=== PATIENT | female | born 1955 | race Caucasian/White ===

== ENCOUNTER 2023-03-29 09:33 | Outpatient (RCR) | payer MEDICARE, BC, SELFPAY ==
--- NOTE | 2023-03-29 09:30 | HOLTER_ITS ---
APPROVED REPORT Conclusion This is a 24-hour Holter monitor ordered for PVCs Rhythm throughout was sinus with an average heart rate of 62. Minimum was 50, maximum 91 There were occasional ventricular ectopic beats, very rare couplets, no ventricular tachycardia. PVC s comprised 3.1% of total beats There were rare atrial premature beats. There was one self-limited atrial run lasting 4 beats There was no atrial fibrillation, no high-grade AV block, no pauses greater than 3 seconds No patient symptoms were reported
== END 2023-04-11 23:59 | disposition home or self-care (01) ==
LOC: CARDOPNVT 09:33
PROVIDERS: Visit Provider Internal Medicine Cardiovascular Disease
DX: I49.3 Ventricular premature depolarization (principal)
CPT/HCPCS: 93225; 93226

== ENCOUNTER 2023-06-11 01:06 | Outpatient (CLI) | payer MEDICARE, BC, SELFPAY ==
--- NOTE | 2023-06-11 | DI.US_ITS ---
APPROVED REPORT EXAM: Comprehensive 2D, Doppler, and color-flow Echocardiogram Patient Location: Out-Patient [employer] Engineer: Pedrito Morgan RDCS Indications: frequent PVC's Other Information Study Quality: Adequate Conclusion Normal left ventricular wall thickness and chamber size. Ejection fraction is 60 to 65%. Wall motio n is normal Normal right ventricular size and systolic function Left atrium is mildly dilated. Right atrial size is normal Aortic valve is mildly sclerotic and trileaflet with trace regurgitation Normal mitral valve with moderate regurgitation Normal tricuspid valve with mild regurgitation. Estimated right ventricular systolic pressure is 36 mmHg Dilated ascending aorta measuring 3.71 cm Wall motion Left Ventricle The left ventricle is normal size. The left ventricular systolic function is normal. The left ventric ular ejection fraction is within the normal range. There is normal left ventricular wall thickness. T here is normal LV segmental wall motion. There is no ventricular septal defect visualized. LVEF is 60 -65%. Right Ventricle The right ventricle is normal size. The right ventricular systolic function is normal. Atria Left atrium is mildly dilated. Right atrium is normal The interatrial septum is intact with no eviden ce for an atrial septal defect. Aortic Valve The Aortic valve is mildly sclerotic. Aortic valve is trileaflet. There is no aortic valvular stenosi s. Trace aortic regurgitation. Mitral Valve The mitral valve is normal in structure. No evidence of mitral valve stenosis. Moderate mitral regurg itation. Tricuspid Valve The tricuspid valve is normal in structure. There is no tricuspid valve stenosis. Mild tricuspid regu rgitation. Pulmonic Valve The pulmonary valve is normal in structure. There is no pulmonic valvular stenosis. Mild pulmonic reg urgitation. Great Vessels The aortic root is normal in size. The ascending aorta is mildly dilated. Aortic arch is normal in ca liber. IVC is normal in size and collapses >50% with inspiration. Pericardium There is no pericardial effusion. 2D Dimensions IVSD d PLAX 0.48 cm F: 0.6-1.0 LV Vol A2C d MOD 143.2 mL LVPW d PLAX 0.48 cm F: 0.6 - 1.0 LV Vol A4C d MOD 129.7 mL LVID d PLAX 5.50 cm F: 3.8 - 5.2 LA vol/ BSA A4C s A-L 42.2 mL/m2 LVDs 3.10 cm F: 2.2 - 3.5 LA Area A4C s MOD 25.36 cm2 Ao Root d 3.27 cm F: 2.7 - 3.3 LV EF A4C MOD 63.3 % Ao Asc Diam d 3.71 cm F: 2.3 - 3.1 LV EF A2C MOD 61.3 % LV EF Teichholz 73.2 % LV EF Biplane MOD 62.4 % LVEF (Villalobos's) 62.36 % F: 54 - 74 SV 85.91 mL LV Volume 102.36 mL F: 46 - 106 SV Index 41.77 mL/m2 LV Volume Index 49.68 mL/m2 F: 29 - 61 LV Vol Biplane MOD 137.8 mL FS 42.70 % M-Mode TAPSE 2.42 cm (M/F) >1.7 LV Diastology MV E' medial 0.111 (>0.07 m/s) E/A Ratio 0.9 LV E/e MED 7.75 (<14) MV E Vmax 0.87 (0.4-1.3 m/s) MV E' lateral 0.130 (>0.1 m/s) MV A Vmax 0.95 (0.4-1.3 m/s) LV E/e LAT 6.65 (<14) MV E/A Ratio 0.90 MV E/E' medial 7.77 MV E/E' lateral 6.66 Aortic Valve LVOT Area 2.98 cm2 AoV Area Vmax 2.58 cm2 LVOT Vmax 1.31 m/s AoV Area/ BSA (Vmax) 1.26 cm2/m2 LVOT Mean Donnell. 0.80 m/s BELLE Mean Donnell. 2.50 cm2 LVOT Peak Grad 6.9 mmHg BELLE Mean Donnell. Index 1.22 cm2/m2 LVOT Mean Grad 3.2 mmHg AR DT 2644 msec LVOT VTI 0.294 m AR PHT 767 msec LVOT Diam s 1.90 cm AoV Vmax 1.44 m/s Velocity Ratio 0.91 AoV Mean Donnell. 0.91 m/s AoV Peak Grad 8.3 mmHg LVOT SV 83.41 mL AoV Mean Grad 3.9 mmHg AoV VTI 0.307 m AoV Area VTI 2.72 cm2 AoV Area/ BSA (VTI) 1.32 cm/m2 Mitral Valve MV DT 240 (160-240 msec) MR Vmax 0.91 m/s MV PHT 70 msec MR VTI 0.351 m MV Area PHT 3.16 cm2 MR Peak Grad 3.3 mmHg MR Mean Grad 1.6 mmHg MR PISA Radius 0.61 cm MR EROA 0.90 cm2 MR Aliasing Velocity 0.35 m/s MR PISA 2.35 cm2 Pulmonary Valve PV Vmax 0.84 (0.5-1.5 m/s) RVOT Peak Gr. 1.04 mmHg PV Peak Grad 2.9 mmHg RVOT Mean Gr. 0.55 mmHg PV Mean Grad 1.6 mmHg RVOT VTI 0.134 m PV VTI 0.193 m RVOT Vmax 0.51 m/s Tricuspid Valve TR Peak Grad 32.9 mmHg TR Vmax 2.87 m/s RA Pressure 3.00 mmHg RVSP (TR) 36.0 mmHg
== END 2023-06-11 01:26 ==
LOC: DI 01:06
PROVIDERS: PCP Family Medicine; Visit Provider Internal Medicine Cardiovascular Disease
DX: I49.3 Ventricular premature depolarization (principal)
CPT/HCPCS: 93306

== ENCOUNTER 2023-06-13 08:03 | Outpatient (CLI) | payer MEDICARE, BC, SELFPAY | END 2023-06-13 08:04 | disposition home or self-care (01) | LOC: DI.CARD 08:04 | PROVIDERS: PCP Family Medicine; Visit Provider Internal Medicine Cardiovascular Disease | DX: I49.3 Ventricular premature depolarization (principal) | CPT/HCPCS: 93010 ==

== ENCOUNTER → 2023-06-13 09:43 | Outpatient (BNVA) | payer MEDICARE, BC, SELFPAY | PROVIDERS: PCP Family Medicine; Visit Provider Internal Medicine Cardiovascular Disease | DX: I49.3 Ventricular premature depolarization (principal); I10 Essential (primary) hypertension | CPT/HCPCS: 99213 ==